=== PATIENT | female | born 1980 | race Caucasian/White ===

== ENCOUNTER 2018-12-17 08:15 | Outpatient (CLI) | payer MEDICAID, SELFPAY ==
--- NOTE | 2018-12-17 14:20 | DI.US_ITS ---
SYMPTOMS/DIAGNOSIS: ADVANCE MATERNAL AGE, VERONICA [birth year], SURVEY OBSTETRICAL ULTRASOUND: Many abnormalities cannot be diagnosed. A normal exam does not exclude a congenital anomaly. Radiology No. [id number] LMP: Exam Date: 12/17/18 [facility] wks days on [facility] ([facility]) 05/10/19 Confirmed: HISTORY: PREDICTED GESTATIONAL AGE NUMBER 19+3 weeks with a range of 18+3 weeks to 20+3 weeks. 2 Determined by___1STUS___LMP___HISTORY Info. pertaining to fetus A PLACENTA PRESENTATION Grade I Cephalic___ Anterior_X__Posterior___ Breech____ Right Left Transverse(head right___ Fundal___Low-lying___Previa___ Transverse(head left___ Varying__X____ BIOMETRY AMNIOTIC FLUID BPD: 47 mm 20+1 weeks Normal HC: 175 mm 20+0 weeks AC: 147 mm 20+0 weeks FL: 32 mm 19+6 weeks AMNIOTIC FLUID INDEX >26 WK CRL: mm weeks Cisterna Magna: 4 mm CI: 84 RUQ: LUQ Cerebellum: 1.9 cm EFW: 322 grams Percentile: 75th RLQ: LLQ Total: cms Composite AGE= 20+0 wks EDC by US: 05/03/19 BIOPHYSICAL PROFILE ANATOMY IDENTIFIED SCORE 0/2 Heart: 4-Chamber__X_Rate:BPM 139 LVOT:____X RVOT:___X Amniotic Fluid(>2cms)____ Stomach:___X____ Kidneys:____X___ Respirations (>30 secs) Bladder:____X____ Post. Fossa:___X Body Flex/Extension 3-vessel cord:___X____Ventricles:___X Cord insertion:__X___ Lips:_X___ Extremity Flex/Extension Spinal morphology:___X Nose:_X___ Total Score= Palate:___X____ NS=not seen Many abnormalities cannot be diagnosed. A normal exam does not exclude a congenital anomaly. Radiology No. [id number] LMP: Exam Date: 12/17/18 [facility] wks days on [facility] ([facility]) 05/10/19 Confirmed: HISTORY: PREDICTED GESTATIONAL AGE NUMBER 19+3 weeks with a range of 18+3 weeks to 20+3 weeks. 2 Determined by___1STUS___LMP___HISTORY Info. pertaining to fetus B PLACENTA PRESENTATION Grade I Cephalic___ Anterior___Posterior___ Breech____ Right Left___X____ Transverse(head right___ Fundal_X__Low-lying___Previa___ Transverse(head left___ Varying__X____ BIOMETRY AMNIOTIC FLUID BPD: 46 mm 20+0 weeks Normal HC: 173 mm 19+6 weeks AC: 147 mm 20+0 weeks FL: 32 mm 19+6 weeks AMNIOTIC FLUID INDEX >26 WK CRL: mm weeks Cisterna Magna: 5 mm CI: 85 RUQ: LUQ Cerebellum: 1.9 cm EFW: 323 grams Percentile: 76th RLQ: LLQ Total: cms Composite AGE= 20+0 wks EDC by US: 05/03/19 BIOPHYSICAL PROFILE ANATOMY IDENTIFIED SCORE 0/2 Heart: 4-Chamber__X_Rate:BPM 145 LVOT:____X RVOT:___X Amniotic Fluid(>2cms)____ Stomach:___X____ Kidneys:____X___ Body Flex/Extension 3-vessel cord:___X____Ventricles:___X Cord insertion:__X___ Lips:_X___ Extremity Flex/Extension Spinal morphology:___X Nose:_X___ Total Score= Palate:___X____ NS=not seen COMMENTS: Routine examination. No priors. There is a twin gestation. Estimated gestational age is 20 weeks 0 days. No or placental abnormalities are visualized. Please refer to the accompanying worksheets for complete details.
== END 2018-12-17 08:35 ==
PROVIDERS: PCP Family Medicine; Visit Provider Midwife
DX: O09.522 Supervision of elderly multigravida, second trimester (principal); O30.002 Twin pregnancy, unspecified number of placenta and unspecified number of amniotic sacs, second trimester
CPT/HCPCS: 76805; 76810

== ENCOUNTER 2019-02-28 00:32 | Outpatient (CLI) | payer MEDICAID, SELFPAY ==
--- NOTE | 2019-02-28 09:04 | DI.US_ITS ---
OB ultrasound was performed utilizing third trimester protocol. There is a twin gestation. biometry is consistent with gestational age of 30 weeks 3 days and EDC of 05/06/19 with estimated weight of 1493 grams for Twin A, the EFW is at the 42nd percentile for predicted gestational age. Twin B biometry shows findings consistent with 31 weeks 2 day dates and EDC of 04/30/19 with estimated weight of 1772 which is at the 89th percentile for predicted gestational age. There is visually a normal quantity of amniotic fluid and the ESAU is 15. Twin A is in breech presentation as is twin B. Placenta is anterior. cardiac activity observed for both twins with cardiac activity for both twins 135 BPM. Predicted Gestational Age: Indication/History: GROWTH, TWINS 29.6 Wks Range: 28.6 to 30.6 Prior US done on: Determined by: First US LMP History X EDC by prior US: 05/10/19 For multiple gestations: Baby__A___ PLACENTA: Grade: I-II Location: Anterior X Posterior PRESENTATION: RT LT LOW LYING PREVIA Cephalic Trans (Head RT LT ) Varied Breech X BIOMETRY: Anatomy Identified: BPD: 77 mm 30.6 wks 4 chamber Heart Heart Rate 135 BPM HC: 283 mm 31.1 wks LVOT Post Fossa AC: 256 mm 29.5 wks RVOT Ventricles FL: 57 mm 29.6 wks Stomach Nose Bladder Lips Cisterna Magna: mm CI: 83 Kidneys Palate Cerebellum: mm 3 vessel cord Spine EFW: 1493 grms 42 % Cord Insertion NS= not seen Composite Age (US) 30.3 wks Many abnormalities cannot be diagnosed. A normal exam does not exclude congenital abnormality. EDC by US 05/06/19 Amniotic Fluid Index: Normal COMMENTS: RUQ: 2.8 LUQ: 2.6 RLQ: 4.8 LLQ: 4.5 Total: 14.8 cm Biophysical Profile: Score 0/2 ESAU (>2cm) Respirations (>30 sec) Body flexion/extension Extremity flexion/extension TOTAL SCORE Predicted Gestational Age: Indication/History: 29.6 Wks Range: 28.6 to 30.6 Prior US done on: Determined by: First US LMP History X EDC by prior US: 05/10/19 For multiple gestations: Baby__B___ PLACENTA: Grade: I-II Location: Anterior Posterior X PRESENTATION: RT LT LOW LYING PREVIA Cephalic Trans (Head RT LT ) Varied Breech X BIOMETRY: Anatomy Identified: BPD: 76 mm 30.3 wks 4 chamber Heart Heart Rate 135 BPM HC: 283 mm 31.1 wks LVOT Post Fossa AC: 276 mm 31.5 wks RVOT Ventricles FL: 61 mm 31.4 wks Stomach Nose Bladder Lips Cisterna Magna: mm CI: 80 Kidneys Palate Cerebellum: mm 3 vessel cord Spine EFW: 1772 grms 89th % Cord Insertion NS= not seen Composite Age (US) 31.2 wks Many abnormalities cannot be diagnosed. A normal exam does not exclude congenital abnormality. EDC by US 04/30/19 Amniotic Fluid Index: Normal COMMENTS: RUQ: 2.8 LUQ: 2.6 RLQ: 4.8 LLQ: 4.5 Total: 14.8 cm Biophysical Profile: Score 0/2 ESAU (>2cm) Respirations (>30 sec) Body flexion/extension Extremity flexion/extension TOTAL SCORE
== END 2019-02-28 00:52 ==
PROVIDERS: PCP Family Medicine
DX: O30.003 Twin pregnancy, unspecified number of placenta and unspecified number of amniotic sacs, third trimester (principal)
CPT/HCPCS: 76816

== ENCOUNTER 2019-03-30 00:40 | Outpatient (CLI) | payer MEDICAID, SELFPAY ==
--- NOTE | 2019-03-30 09:00 | DI.US_ITS ---
Predicted Gestational Age: Indication/History:TWINS, GROWTH,033.003 34.1 Wks Range: 33.1 to 35.1 Prior US done on: Determined by: First US LMP History EDC by prior US: 05/10/19 For multiple gestations: Baby__A___ PLACENTA: Grade: II Location: Anterior X Posterior PRESENTATION: RT LT LOW LYING PREVIA Cephalic Trans (Head RT LT ) Varied Breech X BIOMETRY: Anatomy Identified: BPD: 86 mm 34.6 wks 4 chamber Heart Heart Rate 137 BPM HC: 321 mm 36.1 wks LVOT Post Fossa AC: 300 mm 34 wks RVOT Ventricles FL: 68 mm 34.6 wks Stomach Nose Bladder Lips Cisterna Magna: mm CI: 80 Kidneys Palate Cerebellum: mm 3 vessel cord Spine EFW: 2454 grms 56 th % Cord Insertion NS= not seen Composite Age (US) 35 wks Many abnormalities cannot be diagnosed. A normal exam does not exclude congenital abnormality. EDC by US 05/04/19 Amniotic Fluid Index: Normal COMMENTS: RUQ: 1.59 LUQ: 3.01 RLQ: 2.61 LLQ: 2.85 Total: 10.1 cm Biophysical Profile: Score 0/2 ESAU (>2cm) Respirations (>30 sec) Body flexion/extension Extremity flexion/extension TOTAL SCORE The study was carried out according to the usual protocol. Twins are demonstrated. Baby A lies in a breech position. The measurements suggest a gestational age of 35 weeks. The amniotic fluid index is normal. An anterior grade II placenta is identified. Predicted Gestational Age: Indication/History: 34.1 Wks Range: 33.1 to 35.1 Prior US done on: Determined by: First US LMP History EDC by prior US: 05/10/19 For multiple gestations: Baby__B___ PLACENTA: Grade: ii Location: Anterior Posterior X PRESENTATION: RT LT LOW LYING PREVIA Cephalic Trans X (Head RT X LT ) Varied Breech BIOMETRY: Anatomy Identified: BPD: 85 mm 34.1 wks 4 chamber Heart Heart Rate 135 BPM HC: 315 mm 35.2 wks LVOT Post Fossa AC: 308 mm 34.5 wks RVOT Ventricles FL: 66 mm 34.1 wks Stomach Nose Bladder Lips Cisterna Magna: mm CI: 77 Kidneys Palate Cerebellum: mm 3 vessel cord Spine EFW: 2464 grms 57th% Cord Insertion NS= not seen Composite Age (US) 34.4 wks Many abnormalities cannot be diagnosed. A normal exam does not exclude congenital abnormality. EDC by US 05/07/19 Amniotic Fluid Index: Normal COMMENTS: RUQ: 1.68 LUQ: 2.77 RLQ: 2.22 LLQ: 2.44 Total: 9.1 cm Biophysical Profile: Score 0/2 ESAU (>2cm) Respirations (>30 sec) Body flexion/extension Extremity flexion/extension TOTAL SCORE The study was carried out according to the usual protocol. Twins are demonstrated. Baby B is in head to right position. The measurements would be consistent with a gestational age of 34 weeks and 4 days. The amniotic fluid index is normal. A grade II posterior placenta is identified. Both Baby A and Baby B have an estimated weight of 5 lbs 7 ounces. Please see the OB ultrasound worksheets for further information.
== END 2019-03-30 01:00 ==
PROVIDERS: PCP Family Medicine
DX: O30.003 Twin pregnancy, unspecified number of placenta and unspecified number of amniotic sacs, third trimester (principal)
CPT/HCPCS: 76816